=== PATIENT | female | born 1990 | race Caucasian/White ===

== ENCOUNTER 2018-09-07 20:36 | Emergency (ER) | payer OTHER ==
[~2018-09-07] VITALS: Ht 167.6 cm; Wt 75.3 kg
[~2018-09-07 20:36] MED LIST: ST.150CA PO
[2018-09-07 21:29] VITALS: BP 128/82
== END 2018-09-07 21:38 | disposition home or self-care (01) ==
LOC: ED 21:36
DX: F41.1 Generalized anxiety disorder (principal); T65.891A Toxic effect of other specified substances, accidental (unintentional), initial encounter; Y92.89 Other specified places as the place of occurrence of the external cause; F17.210 Nicotine dependence, cigarettes, uncomplicated
CPT/HCPCS: 71046; 93005; 99284